=== PATIENT | female | born 1985 | race Caucasian/White ===

== ENCOUNTER → 2019-08-08 14:57 | Outpatient (BNVA) | payer SELFPAY | PROVIDERS: Visit Provider Family Medicine | DX: M79.641 Pain in right hand (principal) | CPT/HCPCS: 73130 ==

== ENCOUNTER → 2020-06-11 13:31 | Outpatient (BNVA) | payer OTHER, SELFPAY | PROVIDERS: Visit Provider Nurse Practitioner Family | DX: Z20.828 Contact with and (suspected) exposure to other viral communicable diseases (principal) | CPT/HCPCS: 87635 ==

== ENCOUNTER 2022-02-10 20:44 | Emergency (ER) | payer SELFPAY ==
[2022-02-10 21:02] VITALS: BP 112/48; PULSE 84; RESP 18; TEMP 36.7; O2SAT 98; BMI 25.0
--- NOTE | 2022-02-10 21:05 | ED_ITS ---
HPI - Abdominal Pain General: Chief Complaint: Abdominal Pain Stated Complaint: ABD PAIN Time Seen by Provider: 02/10/22 21:04 History of Present Illness: 36-year-old female comes in today with complaints of left lower quadrant abdominal pain. Patient also reports hernia like protube jean paul to her left inguinal area that reduces when she pushes on it. Patient reports pain and discomfort for the last year. Patient at this time is incarcerated. Patient appears nontoxic. Patient appears in mild pain. Review of Systems General: Reports: 10 or more systems reviewed and unremarkable except in HPI a nd below GI: Reports: abdominal pain PFSH ED PFSH: Surgical History History of tubal ligation Family History Other Diabetes Social History Smoking and tobacco status: current every day smoker Alcohol intake: never Current gender identity: Female Physical Exam Const: COMMON NORMALS: alert HENMT: COMMON NORMALS: normocephalic HEAD & SCALP: normocephalic Neck/C-Spine: COMMON NORMALS: full ROM Chest: COMMONS NORMALS: normal inspection of the chest GI: COMMON NORMALS: Soft to palpation AUSCULTATION: Yes normoactive bowel sounds PALPATION: Yes Soft to palpation and Yes Tenderness to palpation present (GI) Details: LLQ : COMMON NORMALS: Yes no CVA tenderness BLADDER/KIDNEY EXAM: Yes no CVA tenderness OTHER: Left inguinal lymph node freely mobile Back/Pelvis: COMMON NORMALS: no CVA tenderness Extremity: COMMON NORMALS: normal to inspection Neuro: SENSORIUM/ORIENTATION: Yes alert Course Vital Signs: Vital signs: Vital Signs Temperature 98.1 F 02/10/22 21:02 Pulse Rate 60 02/10/22 23:00 Respiratory Rate 18 02/10/22 21:19 Blood Pressure 95/57 02/10/22 23:00 Pulse Oximetry 100 02/10/22 23:00 MDM - Abdominal Pain Medical Decision Making 36-year-old female comes in today with complaints of left lower quadrant abdominal pain and left inguinal palpable nodule. On exam abdomen soft with normal bowel sounds. Patient reports some tenderness in the left lower quadrant. Palpation of the inguinal area and notes to be a palpable movable lymph node. Vital signs are normal. Differential diagnosis includes but not limited to lymphadenopathy, inguinal hernia, bowel obstruction, urinary tract infection. CT of the abdomen and pelvis showed no significant abnormalities. No signs of surgical abdomen was noted on exam. CBC and CMP were unremarkable. Urinalysis was contaminated. Reviewed exam with patient recommended continued treatment with primary care and follow-up with primary care for further evaluation and recommendations. Lab Data : 02/10/22 21:08 02/10/22 21:08 Labs/Radiology: Radiology Impressions Abdomen/Pelvis CT 02/10/22 21:08 IMPRESSION: No acute abnormality is seen in the abdomen or pelvis. Laboratory Results WBC 13.6 10^3/uL (4.0-10.0) H 02/10/22 21:08 RBC 4.75 10^6/uL (4.1-5.3) 02/10/22 21:08 Hgb 14.1 g/dL (11.5-15.3) 02/10/22 21:08 Hct 43.4 % (37.0-47.0) 02/10/22 21:08 MCV 91.4 fl (81-99) 02/10/22 21:08 MCH 29.7 pg (28.0-34.0) 02/10/22 21:08 MCHC 32.5 g/dL (30.0-36.0) 02/10/22 21:08 RDW 12.2 % (12.1-15.1) 02/10/22 21:08 Plt Count 252 10^3/cmm (130-400) 02/10/22 21:08 MPV 9.3 fL (7.4-10.4) 02/10/22 21:08 Neut % (Auto) 39.9 % 02/10/22 21:08 Lymph % (Auto) 50.8 % 02/10/22 21:08 [place] % (Auto) 5.5 % 02/10/22 21:08 Eos % (Auto) 3.0 % 02/10/22 21:08 Baso % (Auto) 0.4 % 02/10/22 21:08 Neut # (Auto) 5.40 10^3/uL (1.8-7.7) 02/10/22 21:08 Lymph # (Auto) 6.9 10^3/uL (0.8-4.8) H 02/10/22 21:08 [place] # (Auto) 0.7 10^3/uL (0.2-0.9) 02/10/22 21:08 Eos # (Auto) 0.4 10^3/uL (0.0-0.8) 02/10/22 21:08 Baso # (Auto) 0.1 10^3/uL (0.0-0.1) 02/10/22 21:08 Nucleated RBC % (auto) 0 % 02/10/22 21:08 Nucleated RBCs # 0.0 /100WBC 02/10/22 21:08 Sodium 142 mmol/L (136-145) 02/10/22 21:08 Potassium 3.8 mmol/L (3.5-5.1) 02/10/22 21:08 Chloride 104 mmol/L (98-107) 02/10/22 21:08 Carbon Dioxide 30 mmol/L (22-29) H 02/10/22 21:08 Anion Gap 11.8 (5-19) 02/10/22 21:08 BUN 19 mg/dL (6-20) 02/10/22 21:08 Creatinine 0.5 mg/dL (0.5-0.9) 02/10/22 21:08 GFR Calculation 139.6 mL/min (90-130) H 02/10/22 21:08 Glucose 133 mg/dL (65-115) H 02/10/22 21:08 Calculated Osmolality 298 mOsm/kg (285-295) H 02/10/22 21:08 Calcium 9.0 mg/dL (8.5-10.5) 02/10/22 21:08 Total Bilirubin 0.2 mg/dL (0.15-1.2) 02/10/22 21:08 AST 27 U/L (0-32) 02/10/22 21:08 ALT 50 U/L (0-33) H 02/10/22 21:08 Alkaline Phosphatase 84 IU/L (35-105) 02/10/22 21:08 Total Protein 6.5 g/dL (6.6-8.7) L 02/10/22 21:08 Albumin 4.1 g/dL (3.5-5.2) 02/10/22 21:08 Globulin 2.4 g/dL (1.3-4.6) 02/10/22 21:08 Lipase 93 U/L (13-60) H 02/10/22 21:08 HCG, Qual Negative (Negative) 02/10/22 21:08 Urine Color Yellow (Yellow) 02/10/22 21:12 Urine Appearance Clear (CLEAR) 02/10/22 21:12 Urine pH 6 (5-7) 02/10/22 21:12 Ur Specific [place] 1.020 (1.005-1.030) 02/10/22 21:12 Urine Protein 3+ (Negative) H 02/10/22 21:12 Urine Glucose (UA) Norm (Normal) 02/10/22 21:12 Urine Ketones 1+ (Negative) H 02/10/22 21:12 Urine Blood 3+ (Negative) H 02/10/22 21:12 Urine Nitrate Negative (Negative) 02/10/22 21:12 Urine Bilirubin 1+ (Negative) H 02/10/22 21:12 Urine Urobilinogen 4 mg/dL (Negative) H 02/10/22 21:12 Ur Leukocyte Esterase Trace (Negative) H 02/10/22 21:12 Urine RBC 0-4 /hpf (0-2) H 02/10/22 21:12 Urine WBC 0-4 /hpf (0-5) H 02/10/22 21:12 Ur Squamous Epith Cells 0-4 /hpf (0-5) H 02/10/22 21:12 Amorphous Sediment 1+ /hpf 02/10/22 21:12 Urine Bacteria Trace /hpf (NONE) 02/10/22 21:12 Urine Mucus 1+ /hpf 02/10/22 21:12 Discharge Plan Discharge Patient Disposition: Home Clinical Impression: Abdominal pain Qualifiers: Abdominal location: left lower quadrant Qualified Code(s): R10.32 - Left lower quadrant pain Condition: Stable Prescriptions: No Action No Known Home Medications 0RF ibuprofen 800 mg tablet 800 mg PO Q8H Qty: 30 0RF Discharge Orders: Discharge ED (Routine); Ordered 02/10/22 Ordered By: Arnel Zamudio Discharge Diet: Usual diet Discharge Activity: Increase activity as tolerated Patient Instructions: Abdominal Pain (ED) Activity Restrictions/Additional Instructions: Follow-up with primary care for further instruction. Drink plenty of water. Use acetaminophen and ibuprofen for pain. Return to ER for high fever greater than 100.4, blood in vomit or stool, or new concerns. Coding Level of Care Code ED Mincemeat Maker for Chg Fwd Exam Detailed
--- NOTE | 2022-02-10 21:08 | CTR_ITS ---
PROCEDURE INFORMATION: Exam: CT Abdomen And Pelvis With Contrast Exam date and time: 02/10/2022 10:13 PM Age: 36 years old Clinical indication: Other: Llq pain; Additional info: Llq pain, possible inguinal hernia left side TECHNIQUE: Imaging protocol: Computed tomography of the abdomen and pelvis with contrast. Radiation optimization: All CT scans at this facility use at least one of these dose optimization techniques: automated exposure control; mA and/or kV adjustment per patient size (includes targeted exams where dose is matched to clinical indication); or iterative reconstruction. Contrast material: OMNIPAQUE 350; Contrast volume: 95 ml; Contrast route: INTRAVENOUS (IV); COMPARISON: CT abdomen pelvis w con* [id number] 01/17/2016 10:47 AM RADIATION DOSE METRICS: Total DLP (mGy-cm): 876.51 FINDINGS: Liver: Normal. No mass. Gallbladder and bile ducts: Normal. No calcified stones. No ductal dilation. Pancreas: Normal. No ductal dilation. Spleen: Normal. No splenomegaly. Adrenal glands: Normal. No mass. Kidneys and ureters: Normal. No hydronephrosis. Stomach and bowel: Unremarkable. No obstruction. No mucosal thickening. Appendix: The appendix is normal. Intraperitoneal space: Unremarkable. No free air. No significant fluid collection. Vasculature: Unremarkable. No abdominal aortic aneurysm. Lymph nodes: Unremarkable. No enlarged lymph nodes. Urinary bladder: Unremarkable as visualized. Reproductive: Unremarkable as visualized. Bones/joints: Unremarkable. No acute fracture. Soft tissues: Unremarkable. CT/CT abdomen pelvis w con* [id number] IMPRESSION: No acute abnormality is seen in the abdomen or pelvis.
[2022-02-10 21:19] VITALS: BP 98/69; PULSE 98; RESP 18; O2SAT 99
[2022-02-10 21:19] LABS: Basophils # 0.1 10^3/uL (0.0-0.1); Basophils % 0.4 %; Eosinophils # 0.4 10^3/uL (0.0-0.8); Hematocrit 43.4 % (37.0-47.0); Hemoglobin 14.1 g/dL (11.5-15.3); Lymphocytes # 6.9 10^3/uL (0.8-4.8); Lymphocytes % 50.8 %; Mean Corpuscular HGB Conc 32.5 g/dL (30.0-36.0); Mean Corpuscular Hemoglobin 29.7 pg (28.0-34.0); Mean Corpuscular Volume 91.4 fl (81-99); Mean Platelet Volume 9.3 fL (7.4-10.4); Monocytes # 0.7 10^3/uL (0.2-0.9); Monocytes % 5.5 %; Neutrophils % 39.9 %; Nucleated Red Blood Cells % 0 %; Platelet Count 252 10^3/cmm (130-400); Red Blood Count 4.75 10^6/uL (4.1-5.3); Red Cell Distribution Width 12.2 % (12.1-15.1); White Blood Count 13.6 10^3/uL (4.0-10.0)
[2022-02-10] MEDS: ondansetron 2 mg/ML SDV 2 mL 4 MG IVP (21:30)
[2022-02-10] MEDS: ketorolac 30 mg/mL INJ 15 MG IVP (21:30)
[2022-02-10] MEDS: sodium chloride 0.9% 1,000 ML 999 ML IV (21:30)
[2022-02-10 21:42] LABS: Alanine Aminotransferase 50 U/L (0-33); Albumin Level 4.1 g/dL (3.5-5.2); Alkaline Phosphatase 84 IU/L (35-105); Anion Gap 11.8 (5-19); Aspartate Amino Transferase 27 U/L (0-32); Blood Urea Nitrogen 19 mg/dL (6-20); Carbon Dioxide 30 mmol/L (22-29); Chloride 104 mmol/L (98-107); Globulin 2.4 g/dL (1.3-4.6); Glomerular Filtration Rate 139.6 mL/min (90-130); Glucose 133 mg/dL (65-115); Lipase 93 U/L (13-60); Osmolality Calculated 298 mOsm/kg (285-295); Potassium 3.8 mmol/L (3.5-5.1); Sodium 142 mmol/L (136-145); Total Bilirubin 0.2 mg/dL (0.15-1.2); Total Protein 6.5 g/dL (6.6-8.7)
[2022-02-10 21:53] LABS: HCG, Serum Qual Negative (Negative); Slide Review Slide Review Perform
[2022-02-10 21:53] LABS: Glucose Urine UA Norm (Normal); Ketones Urine 1+ (Negative); Protein Urine 3+ (Negative); Urine Appearance Clear (CLEAR); Urine Color Yellow (Yellow); pH Urine 6 (5-7)
[2022-02-10 21:54] LABS: Add Urine Culture? No; Add Urine Microscopic? YES; Amorphous Sediment Urine 1+ /hpf; Bacteria Urine TRACE /hpf; Bilirubin Urine 1+ (Negative); Blood Urine 3+ (Negative); Leukocyte Esterase Urine Trace (Negative); Mucus Urine 1+ /hpf; Nitrate Urine Negative (Negative); RBC Urine 0-4 /hpf (0-2); Squamous Epithelial Cell Urine 0-4 /hpf (0-5); Urobilinogen Urine 4 mg/dL (Negative); WBC Urine 0-4 /hpf (0-5)
[2022-02-10 23:00] VITALS: BP 95/57; PULSE 60; O2SAT 100
[2022-02-10 23:48] VITALS: BP 80/53; PULSE 70; RESP 16; O2SAT 98
== END 2022-02-10 23:53 | disposition home or self-care (01) ==
PROVIDERS: Emergency Provider Nurse Practitioner Family
DX: R10.32 Left lower quadrant pain (principal); F17.210 Nicotine dependence, cigarettes, uncomplicated
CPT/HCPCS: 74177; 80053; 81001; 83690; 84703; 85025; 87491; 87591; 96374; 96375; 99285; J1885; J2405; J7030; Q9967

== ENCOUNTER 2022-05-06 15:11 | Emergency (ER) | payer SELFPAY ==
[2022-05-06 15:12] VITALS: BP 114/85; PULSE 84; RESP 18; TEMP 36.7; O2SAT 100; BMI 24.2
[2022-05-06 15:51] VITALS: BP 114/85; PULSE 84; RESP 18; TEMP 36.7; O2SAT 100
[2022-05-06 16:12] VITALS: BP 114/85; PULSE 84; RESP 18; TEMP 36.7; O2SAT 100
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
== END 2022-05-06 16:13 | disposition home or self-care (01) ==
PROVIDERS: Emergency Provider Family Medicine
DX: R45.851 Suicidal ideations (principal); F41.9 Anxiety disorder, unspecified; T76.21XA Adult sexual abuse, suspected, initial encounter; F17.210 Nicotine dependence, cigarettes, uncomplicated
CPT/HCPCS: 99283

== ENCOUNTER 2022-05-27 18:16 | Emergency (ER) | payer SELFPAY ==
--- NOTE | 2022-05-27 18:28 | XRR_ITS ---
PROCEDURE INFORMATION: Exam: XR Chest Exam date and time: 05/27/2022 7:38 PM Age: 36 years old Clinical indication: Chest pressure and chest wall pain; Additional info: Cp TECHNIQUE: Imaging protocol: Radiologic exam of the chest. Views: 1 view. COMPARISON: CR XR acute abdomen series [id number] 07/16/2019 5:07 PM FINDINGS: Lungs: Unremarkable. No consolidation. Pleural spaces: Unremarkable. No pleural effusion. No pneumothorax. Heart/Mediastinum: Unremarkable. No cardiomegaly. Bones/joints: Unremarkable. XR/XR chest 1V portable [id number] IMPRESSION: No acute findings.
--- NOTE | 2022-05-27 18:39 | ECG_ITS ---
[facility] Test Date: 2022-05-27 Pat Name: Abbey Pritchett Department: Room: Gender: Female Duplicate Maker: : 1985 Requested By: Mayito Dunn Order Number: [id number] Estiven MD: Milena Alberto M.D. Measurements Intervals [place] Rate: 66 P: 7 MS: 171 QRS: 26 QRSD: 88 T: 44 QT: 385 QTc: 404 Interpretive Statements SINUS RHYTHM POSSIBLE RIGHT VENTRICULAR CONDUCTION DELAY [RSR (QR) IN V1/V2] Compared to ECG 01/23/2019 06:56:33 No significant changes Electronically Signed On 05-27-2022 21:03:56 SHEARER HELPER by Milena Alberto M.D. [id number]
--- NOTE | 2022-05-27 18:54 | ED_ITS ---
HPI - Chest Pain General: Chief Complaint: Abdominal Pain Stated Complaint: abd pain Time Seen by Provider: 05/27/22 18:21 Source: patient Mode of arrival: ambulatory Limitations: no limitations History of Present Illness: 36-year-old female who is here from care home she states she has been having some chest pain along with some abdominal cramping she states the cramping is diffuse in nature rates today 2 out of 10 she denies any dysuria denies any vomiting denies any diarrhea she denies any fever she is resting comfortably here. Associated symptoms: Reports abdominal pain; Deny dyspnea or fever(s) Review of Systems Const: Denies: fever(s), chills, body aches or change in appetite Eyes: Denies: blurry vision or eye discomfort ENMT: Denies: throat pain or dental pain Card: Reports: chest pain Resp: Denies: dyspnea GI: Reports: abdominal pain : Denies: dysuria Musc: Denies: neck pain or back pain Skin/Breast: Denies: rash Neuro: Denies: headache(s) Psych: Denies: depression Manjinder/Lymph: Denies: easy bruising All/Imm: Denies: urticaria PFSH ED PFSH: Medical History Abdominal pain Psychiatric care Surgical History History of tubal ligation Family History Other Diabetes Social History Smoking and tobacco status: current every day smoker Alcohol intake: never Current gender identity: Female Female Reproductive History: Date of last menstrual period: 04/23/22 Physical Exam Const: COMMON NORMALS: no acute distress, patient oriented x3 and healthy appearing HENMT: COMMON NORMALS: normocephalic and atraumatic HEAD & SCALP: normocephalic and atraumatic Eye: COMMON NORMALS: Equal, round and reactive pupils present and EOMs intact bilaterally PUPIL: Yes Equal, round and reactive pupils present Neck/C-Spine: COMMON NORMALS: full ROM and supple Chest: COMMONS NORMALS: normal inspection of the chest and normal palpation of entire chest wall Resp: COMMON NORMALS: normal respiratory effort, No retractions, No use of accessory muscles and clear to auscultation bilaterally AUSCULTATION: clear to auscultation bilaterally Cardio: COMMON NORMALS: regular rate, regular rhythm and No murmurs present (Cardio) RATE: regular rate RHYTHM: regular rhythm GI: COMMON NORMALS: Normal to inspection, nondistended, normoactive bowel sounds present, Soft to palpation, non-tender and no masses PALPATION: Yes Soft to palpation Extremity: COMMON NORMALS: normal to inspection and full ROM Neuro: COMMON NORMALS: patient oriented x3, moves all extremities and no focal motor deficits Psych: COMMON NORMALS: mental status grossly normal, Normal thought process present and cooperative THOUGHT PROCESS: Normal thought process present Skin: COMMON NORMALS: no rashes or lesions noted and no wounds GENERAL SKIN EXAM: no rashes or lesions noted Course Vital Signs: Vital signs: Vital Signs Pulse Rate 69 05/27/22 19:22 Respiratory Rate 18 05/27/22 19:22 Blood Pressure 108/72 05/27/22 19:22 Pulse Oximetry 99 05/27/22 19:22 MDM - Chest Pain Medical Decision Making Patient presents here with abdominal pain her exam here is benign she is also complaining chest pain EKG and x-ray are normal she is well-appearing here she is stable for discharge she is to follow-up with her PCP and return if worsening she understands agrees to plan. Lab Data : 05/27/22 18:52 05/27/22 18:52 Radiology Impressions Chest X-Ray 05/27/22 18:28 IMPRESSION: No acute findings. Laboratory Results WBC 13.2 10^3/uL (4.0-10.0) H 05/27/22 18:52 RBC 4.76 10^6/uL (4.1-5.3) 05/27/22 18:52 Hgb 14.4 g/dL (11.5-15.3) 05/27/22 18:52 Hct 43.9 % (37.0-47.0) 05/27/22 18:52 MCV 92.2 fl (81-99) 05/27/22 18:52 MCH 30.3 pg (28.0-34.0) 05/27/22 18:52 MCHC 32.8 g/dL (30.0-36.0) 05/27/22 18:52 RDW 12.0 % (12.1-15.1) L 05/27/22 18:52 Plt Count 264 10^3/cmm (130-400) 05/27/22 18:52 MPV 9.2 fL (7.4-10.4) 05/27/22 18:52 Neut % (Auto) 37.5 % 05/27/22 18:52 Lymph % (Auto) 54.0 % 05/27/22 18:52 [place] % (Auto) 5.0 % 05/27/22 18:52 Eos % (Auto) 2.9 % 05/27/22 18:52 Baso % (Auto) 0.3 % 05/27/22 18:52 Neut # (Auto) 4.94 10^3/uL (1.8-7.7) 05/27/22 18:52 Lymph # (Auto) 7.1 10^3/uL (0.8-4.8) H 05/27/22 18:52 [place] # (Auto) 0.7 10^3/uL (0.2-0.9) 05/27/22 18:52 Eos # (Auto) 0.4 10^3/uL (0.0-0.8) 05/27/22 18:52 Baso # (Auto) 0.0 10^3/uL (0.0-0.1) 05/27/22 18:52 Nucleated RBC % (auto) 0 % 05/27/22 18:52 Nucleated RBCs # 0.0 /100WBC 05/27/22 18:52 Sodium 139 mmol/L (136-145) 05/27/22 18:52 Potassium 4.3 mmol/L (3.5-5.1) 05/27/22 18:52 Chloride 102 mmol/L (98-107) 05/27/22 18:52 Carbon Dioxide 31 mmol/L (22-29) H 05/27/22 18:52 Anion Gap 10.3 (5-19) 05/27/22 18:52 BUN 18 mg/dL (6-20) 05/27/22 18:52 Creatinine 0.6 mg/dL (0.5-0.9) 05/27/22 18:52 GFR Calculation 113.1 mL/min (90-130) 05/27/22 18:52 Glucose 96 mg/dL (65-115) 05/27/22 18:52 Calculated Osmolality 290 mOsm/kg (285-295) 05/27/22 18:52 Calcium 9.4 mg/dL (8.5-10.5) 05/27/22 18:52 Total Bilirubin 0.2 mg/dL (0.15-1.2) 05/27/22 18:52 AST 19 U/L (0-32) 05/27/22 18:52 ALT 28 U/L (0-33) 05/27/22 18:52 Alkaline Phosphatase 72 U/L (35-105) 05/27/22 18:52 Total Protein 6.8 g/dL (6.6-8.7) 05/27/22 18:52 Albumin 3.7 g/dL (3.5-5.2) 05/27/22 18:52 Globulin 3.1 g/dL (1.3-4.6) 05/27/22 18:52 Lipase 68 U/L (13-60) H 05/27/22 18:52 HCG, Qual Negative (Negative) 05/27/22 18:52 Urine Color Yellow (Yellow) 05/27/22 18:55 Urine Appearance Clear (CLEAR) 05/27/22 18:55 Urine pH 5 (5-7) 05/27/22 18:55 Ur Specific [place] 1.025 (1.005-1.030) 05/27/22 18:55 Urine Protein Neg (Negative) 05/27/22 18:55 Urine Glucose (UA) Norm (Normal) 05/27/22 18:55 Urine Ketones Negative (Negative) 05/27/22 18:55 Urine Blood Neg (Negative) 05/27/22 18:55 Urine Nitrate Negative (Negative) 05/27/22 18:55 Urine Bilirubin Neg (Negative) 05/27/22 18:55 Urine Urobilinogen Norm mg/dL (Negative) 05/27/22 18:55 Ur Leukocyte Esterase Negative (Negative) 05/27/22 18:55 EKG Data EKG 1: I personally reviewed and interpreted this EKG as follows: EKG interpretation date: 05/27/22 EKG interpretation time: 18:39 Interpretation: nsr hr [address] or t wave abnormalities qrs 88 qtc 398 Discharge Plan Discharge Patient Disposition: Home Clinical Impression: Abdominal pain Condition: Stable Prescriptions: No Action No Known Home Medications ibuprofen 800 mg tablet 800 mg PO Q8H Qty: 30 0RF Discharge Orders: Discharge ED (Routine); Ordered 05/27/22 Ordered By: Mayito Dunn Discharge Diet: Advance as tolerated Discharge Activity: Resume usual activity Patient Instructions: Abdominal Pain (ED) Coding Level of Care Code ED Online User Experience Strategist for Chg Fwd Exam Comprehensive
[2022-05-27] MEDS: sodium chloride 0.9% 1,000 ML 999 ML IV (18:58)
[2022-05-27 19:06] LABS: Add Urine Microscopic? NO; Charge for UA Resulting for Rev
[2022-05-27 19:07] LABS: Basophils % 0.3 %; Eosinophils # 0.4 10^3/uL (0.0-0.8); Eosinophils % 2.9 %; Hematocrit 43.9 % (37.0-47.0); Hemoglobin 14.4 g/dL (11.5-15.3); Lymphocytes # 7.1 10^3/uL (0.8-4.8); Mean Corpuscular HGB Conc 32.8 g/dL (30.0-36.0); Mean Corpuscular Hemoglobin 30.3 pg (28.0-34.0); Mean Corpuscular Volume 92.2 fl (81-99); Mean Platelet Volume 9.2 fL (7.4-10.4); Monocytes # 0.7 10^3/uL (0.2-0.9); Neutrophils # 4.94 10^3/uL (1.8-7.7); Neutrophils % 37.5 %; Nucleated Red Blood Cells % 0 %; Platelet Count 264 10^3/cmm (130-400); Red Blood Count 4.76 10^6/uL (4.1-5.3); White Blood Count 13.2 10^3/uL (4.0-10.0)
[2022-05-27 19:17] LABS: Slide Review Slide Review Perform
[2022-05-27 19:22] VITALS: BP 108/72; PULSE 69; RESP 18; O2SAT 99
[2022-05-27 19:29] LABS: HCG, Serum Qual Negative (Negative)
[2022-05-27 19:30] LABS: Bilirubin Urine Neg (Negative); Blood Urine Neg (Negative); Glucose Urine UA Norm (Normal); Ketones Urine Negative (Negative); Leukocyte Esterase Urine Negative (Negative); Nitrate Urine Negative (Negative); Protein Urine Neg (Negative); Specific Gravity, Urine 1.025 (1.005-1.030); Urine Appearance Clear (CLEAR); Urine Color Yellow (Yellow); Urobilinogen Urine Norm (Negative); pH Urine 5 (5-7)
[2022-05-27 19:33] LABS: Alanine Aminotransferase 28 U/L (0-33); Albumin Level 3.7 g/dL (3.5-5.2); Alkaline Phosphatase 72 U/L (35-105); Anion Gap 10.3 (5-19); Aspartate Amino Transferase 19 U/L (0-32); Blood Urea Nitrogen 18 mg/dL (6-20); Calcium 9.4 mg/dL (8.5-10.5); Carbon Dioxide 31 mmol/L (22-29); Chloride 102 mmol/L (98-107); Globulin 3.1 g/dL (1.3-4.6); Glomerular Filtration Rate 113.1 mL/min (90-130); Glucose 96 mg/dL (65-115); Lipase 68 U/L (13-60); Osmolality Calculated 290 mOsm/kg (285-295); Potassium 4.3 mmol/L (3.5-5.1); Sodium 139 mmol/L (136-145); Total Bilirubin 0.2 mg/dL (0.15-1.2); Total Protein 6.8 g/dL (6.6-8.7)
== END 2022-05-27 20:04 | disposition home or self-care (01) ==
PROVIDERS: Emergency Provider Emergency Medicine
DX: R10.9 Unspecified abdominal pain (principal); R07.9 Chest pain, unspecified; F17.200 Nicotine dependence, unspecified, uncomplicated; Z98.51 Tubal ligation status
CPT/HCPCS: 71045; 80053; 81003; 83690; 84703; 85025; 93005; 96360; 99284; J7030

== ENCOUNTER → 2023-02-17 16:32 | Outpatient (BNVA) | payer SELFPAY | PROVIDERS: Visit Provider Nurse Practitioner Family | DX: L02.414 Cutaneous abscess of left upper limb (principal); Z71.6 Tobacco abuse counseling; Z23 Encounter for immunization | CPT/HCPCS: 87070; 87075; 87205 ==

== ENCOUNTER → 2023-02-23 14:19 | Outpatient (BNVA) | payer SELFPAY | PROVIDERS: Visit Provider Nurse Practitioner Family | DX: R19.7 Diarrhea, unspecified (principal) | CPT/HCPCS: 87493; 87506 ==

== ENCOUNTER → 2023-03-16 15:17 | Outpatient (BNVA) | payer SELFPAY | PROVIDERS: Visit Provider Nurse Practitioner Family | DX: R42 Dizziness and giddiness (principal); G25.81 Restless legs syndrome; G47.00 Insomnia, unspecified; R10.32 Left lower quadrant pain; R10.9 Unspecified abdominal pain | CPT/HCPCS: 80053; 81000; 84443; 85025 ==